=== PATIENT | male | born 1990 | race Two or more races ===

== ENCOUNTER 2022-02-16 19:02 | Emergency (ER) | payer OTHER ==
[~2022-02-16] VITALS: Ht 175.3 cm; Wt 79.8 kg
[2022-02-16 20:22] VITALS: BP 134/88
[2022-02-16] MEDS ORDERED: HYDROCODONE/APAP 5/325MG TABLET ONE (20:53)
[2022-02-16] MEDS ORDERED: IBUPROFEN 600 MG TABLET ONE (20:53)
[2022-02-16] MEDS ORDERED: IBUPROFEN 600 MG TABLET PO ONE (21:00)
[2022-02-16] MEDS ORDERED: HYDROCODONE/APAP 5/325MG TABLET PO ONE (21:00)
[2022-02-16] MEDS ORDERED: LIDOCAINE 1% INJ 50 ML MDV IJ ONE (21:04)
[2022-02-16] MEDS ORDERED: HYDR-4303 PO (22:36)
--- NOTE | 2022-02-16 23:11 | NUR ---
Patient discharged to home in stable condition. Written and verbal after care instructions given. Patient verbalizes understanding of instruction.
== END 2022-02-16 23:12 | disposition home or self-care (01) ==
LOC: ER 19:09
DX: S52.571A Other intraarticular fracture of lower end of right radius, initial encounter for closed fracture (principal); S52.611A Displaced fracture of right ulna styloid process, initial encounter for closed fracture; W19.XXXA Unspecified fall, initial encounter; Y93.66 Activity, soccer; Y92.322 Soccer field as the place of occurrence of the external cause; Y99.8 Other external cause status
CPT/HCPCS: 25605; 99284; 73110; 73100; J3490